=== PATIENT | female | born 1995 | race Two or more races ===

== ENCOUNTER 2021-10-14 13:05 | Emergency (ER) | payer OTHER ==
[~2021-10-14] VITALS: Ht 154.9 cm; Wt 74.4 kg
[2021-10-14 13:07] VITALS: BP 124/94
[2021-10-14] MEDS ORDERED: ACETAMINOPHEN 500 MG TAB PO ONE (13:45)
[2021-10-14] MEDS ORDERED: PRED20TA2 PO ×2 (14:18→15:13)
[2021-10-14] MEDS ORDERED: ACET-1156 PO ×2 (14:19→15:13)
[2021-10-14 14:35] LABS: Urine WBC None Seen /hpf (0 - 5)
[2021-10-14 14:50] LABS: Urine Bacteria NONE SEEN /hpf (None Seen); Urine Blood Negative /uL (Negative); Urine Specific Gravity 1.007 (1.001-1.035)
[2021-10-14] MEDS ORDERED: ALBU108A5 IN (15:13)
== END 2021-10-14 16:55 | disposition home or self-care (01) ==
LOC: ER 13:05
DX: O98.512 Other viral diseases complicating pregnancy, second trimester (principal); O26.892 Other specified pregnancy related conditions, second trimester; U07.1 COVID-19; Z3A.16 16 weeks gestation of pregnancy
CPT/HCPCS: 36415; 81001; 81025